=== PATIENT | male | born 1955 | race Caucasian/White ===

== ENCOUNTER 2019-12-04 07:56 | Day surgery (SDC) | payer MEDICARE ==
[2019-12-03 09:46] VITALS: BMI 4100.8
[2019-12-04] MEDS ORDERED: Lidocaine 1% w/Epinephrine 1:100K 20 ML VIAL ONE (09:17)
[2019-12-04] MEDS ORDERED: Bacitracin Zinc Ointment 30 gm TUBE ONE (09:17)
[2019-12-04 09:20] LABS: Hemoglobin 15.1 g/dL (14.0-18.0)
[2019-12-04 09:24] LABS: Anion Gap 13 mmol/L (10-20); BUN (Urea Nitrogen) 21 mg/dL (8.4-25.7); Calc. Creatinine Clearance 84 mL/min (70-130); Calcium 9.4 mg/dL (7.8-10.44); Carbon Dioxide 26 mmol/L (23-31); Chloride 106 mmol/L (98-107); Estimated GFR-MDRD 62; Glucose 104 mg/dL (80-115); Potassium 4.3 mmol/L (3.5-5.1); Sodium 141 mmol/L (136-145)
[2019-12-04] MEDS ORDERED: Fentanyl 100 MCG/2 ML VIAL ONE ×3 (09:24→11:00)
[2019-12-04] MEDS ORDERED: Lidocaine 1% PF 5 ML VIAL ONE (12:37)
[2019-12-04] MEDS ORDERED: Ondansetron PF 4 MG/2 ML Vial ONE (12:37)
[2019-12-04] MEDS ORDERED: Dexamethasone 20 MG/5 ML VIAL ONE (12:37)
[2019-12-04] MEDS ORDERED: EPHEDRINE 25 MG/5 ML SYRINGE ONE (12:37)
[2019-12-04] MEDS ORDERED: PROPOFOL 200 MG/20 ML VIAL ONE (12:37)
--- NOTE | 2019-12-05 11:03 | OP ---
DATE OF PROCEDURE: 12/04/2019 PREOPERATIVE DIAGNOSES: 1. Right submandibular gland sialadenitis. 2. Right submandibular mass. ESTIMATED BLOOD LOSS: 10 mL. COMPLICATIONS: None. ANESTHESIA: GETA. DESCRIPTION OF PROCEDURE: The patient was taken to operating room, placed supine on the table. General endotracheal anesthesia was obtained by the anesthesia staff. Tube was secured in the left lower lip. A shoulder roll was placed. The head was gently turned to the left gently exposing the right neck. Following this, a 3 cm long incision was made into the skin crease approximately 2 cm below the angle of the mandible. A skin incision was carried through skin, subcutaneous tissue, and the platysmal muscle layer. Subplatysmal flaps were elevated superiorly and inferiorly to provide adequate surgical access to the submandibular gland. Following this, the gland was freed from its inferior attachments to the digastric muscle and the hypoglossal nerve was identified. Following this, the gland was then displaced inferiorly using the Allis clamp, and the marginal mandibular nerve was identified and was elevated superiorly coursing laterally to the facial artery and vein. The facial artery and vein were then sutured below the level of the mandible. Following this, the gland was further displaced inferiorly and the floor of mouth musculature was retracted exposing the lingual nerve. The postganglionic fibers of the lingual nerve were suture ligated medially adjacent to the gland, and the gland was then displaced from the body. The submandibular duct was coursed as it traveled past the mylohyoid muscle, and the mylohyoid muscle was retracted anteriorly. The submandibular duct was then suture ligated medially adjacent to the floor of the mouth. The wound was then irrigated. Hemostasis was controlled, and a small drain was placed, and the wound was closed using 3-0 Monocryl stitches for the platysma layer and 4-0 Monocryl stitches for the subcutaneous layer. Dermabond was placed to close the skin. The drain was noted to be working at the end of the procedure. Job ID: [id number]
== END 2019-12-04 13:10 | disposition home or self-care (01) ==
LOC: SDC 07:56
PROVIDERS: ATTEND Otolaryngology Plastic Surgery within the Head & Neck
PROC: 0CBG0ZZ Excision of Right Submaxillary Gland, Open Approach (ICD-10-PCS; principal; 2019-12-04)
DX: K11.20 Sialoadenitis, unspecified (principal); J45.909 Unspecified asthma, uncomplicated; Z79.899 Other long term (current) drug therapy; Z91.011 Allergy to milk products
CPT/HCPCS: 80048; 85014; 85018; 88307; 93005; 93010; J1100; J2001; J2405; J2704; J3010